=== PATIENT | female | born 1990 | race Caucasian/White ===

== ENCOUNTER 2017-04-28 18:33 | Inpatient (IN) | payer OTHER ==
--- NOTE | 2017-04-28 19:40 | NUR ---
Pre-Admission Assessment Patient was seen in intake office and noted to be stable to proceed with admission assessment. Patients vital signs rendered and noted as 117/80, 105, 18, 98.0, 99%, 0/10. Patient verbalized allergies to Celexa. Patient verbalized of bring no home medications with her. She verbalized that she recently relapsed 1 week ago on 04/21/17 when she exited [facility] in [place]. Patient verbalized of using Heroin since the age of 21, using 0.5-1GM IV Daily, last dose used prior to admission 04/28/17 0700 using 0.3GM. Patient also noted to use Methamphetamines for the past year, using 0.5gm via inhalation with last dose prior to admission 04/28/17 1300 0.1GM. Patient also reports of using Xanax periodically with last dose noted to be used 04/25/17 2mg via nasal. Patient denies seizure history. Patient verbalized Past medical history of Anxiety and Depression which were diagnosed at the age of 16. No history of family substance use. Patient was explained the policies and procedures of medical disposal if medications were to be found in luggage. Patient was able to verbalize understanding. All questions answered. Will continue with admission process on unit.
--- NOTE | 2017-04-28 22:00 | NUR ---
AMA Patient was noted with increased anxiety and verbalizing patient wanting to leave AMA and states "I did not know this was going to be a Hospital. My dad in a hospital about a month ago. Patient was able to speak [employer] but without any success. Patient was educated about the risks and consequences of leaving AMA. Patient was able to verbalize understanding but still requested to leave. Vital signs noted to be within normal limit. Patient was given a list of community resources in case she is in need of help. All belongings returned to patient. patient left the facility on 04/28/17 at 2155.
== END 2017-04-28 21:55 | disposition left against medical advice (07) | DRG 894 ==
LOC: SRC 18:56
PROVIDERS: ADMIT Internal Medicine; ATTEND Internal Medicine
DX: F11.23 Opioid dependence with withdrawal (principal)
CPT/HCPCS: A4663